=== PATIENT | female | born 1945 | race Hispanic/Latino ===

== ENCOUNTER 2017-02-22 10:48 | Outpatient (CLI) | payer MEDICARE, BC ==
--- NOTE | 2017-02-22 13:20 | SJPRAD ---
TWO VIEWS CHEST INDICATION: Cough, pneumonia. FINDINGS: There is a patchy left basilar opacity. Cardiac silhouette is upper limits of normal in size. No evidence of effusion or pneumothorax. No vascular congestion. There is osseous degenerative change . IMPRESSION: Subtle patchy left basilar opacity which may be on the basis of an area of pneumonia. Follow-up princess ging may be obtained to confirm resolution. POS: [facility]
== END 2017-02-22 10:49 | disposition home or self-care (01) ==
LOC: MWLC RAD 10:48
PROVIDERS: ATTEND Internal Medicine Geriatric Medicine
DX: R05 Cough (principal)

== ENCOUNTER 2017-05-22 13:50 | Outpatient (CLI) | payer MEDICARE, BC | END 2017-05-22 13:51 | disposition home or self-care (01) | LOC: BICMAMMO 13:50 | PROVIDERS: ATTEND Internal Medicine Hematology & Oncology | DX: Z13.820 Encounter for screening for osteoporosis (principal); M85.859 Other specified disorders of bone density and structure, unspecified thigh | CPT/HCPCS: 77080 ==

== ENCOUNTER 2018-07-01 15:33 | Outpatient (CLI) | payer MEDICARE, BC ==
[2018-07-01] MEDS ORDERED: ISOVUE-370 76%-LOCM 1 ML ONE (16:32)
--- NOTE | 2018-07-01 17:19 | CT ---
CT ABDOMEN AND PELVIS WITH CONTRAST: Technique: Multiple contiguous axial images were obtained through the abdomen and pelvis with IV enha ncement. Indications: Incisional hernia. Prior hernia surgery in 2006. Question new hernia. Comparison: 11/2014 FINDINGS: Lung bases are clear. Liver, spleen, and pancreas unremarkable. The gallbladder is mildly distended. Calcification is seen along the wall of the gallbladder which is a new finding when compared to an exam of 2015. This may represent tiny peripheral gallstones or pos sibly gallbladder wall calcification. No evidence of pericholecystic edema. Adrenal glands and kidneys unremarkable. There are small cystic lesions in both kidneys which are sta ble from prior exam. Bowel loops unremarkable. Stool throughout the colon. Diverticulosis of the sigmoid colon. Aorta normal caliber. Uterus unremarkable. There is a cyst in the left adnexa measuring 2.0 cm consis tent with an ovarian cyst on the left. Degenerative spine changes are prominent. Radiopaque fasteners along the prior anterior hernia repair. There appears to be a small defect in the anterior abdominal wall superior to the umbilicus in the mi dline. There appears to be mesenteric fat herniated through this defect with evidence of a small mona ia sac and subcutaneous tissues measuring approximately 4 cm. A questionable defect was present in 2015 and does not appear significantly changed. The small anteri or abdominal wall defect is best appreciated with sagittal images. IMPRESSION: 1. Small anterior abdominal wall hernia as described above. The small defect which measures approxima tely 8 mm on the sagittal view is best appreciated in the sagittal plane. 2. There is mild gallbladder distention and calcification along the wall of the gallbladder which is a new finding. 3. Evidence of a small left ovarian cyst which does appear stable when compared to the exam in 2015. POS: [facility]
== END 2018-07-01 15:34 | disposition home or self-care (01) ==
LOC: BICCT 15:33
PROVIDERS: ATTEND Surgery
DX: K43.2 Incisional hernia without obstruction or gangrene (principal); K43.9 Ventral hernia without obstruction or gangrene; K82.8 Other specified diseases of gallbladder; N83.202 Unspecified ovarian cyst, left side
CPT/HCPCS: 74177; Q9966

== ENCOUNTER 2018-07-24 01:06 | Outpatient (CLI) | payer MEDICARE, BC ==
[2018-07-24 10:57] LABS: #Eosinphils 0.2 thou/uL (0.0-0.7); #Lymphocytes 1.7 thou/uL (1.20-3.40); #Monocytes 0.4 thou/uL (0.11-0.59); #Neutrophils 3.3 thou/uL (1.40-6.50); %Basophils 0.7 % (0.0-1.0); %Eosinophils 2.7 % (0.0-10.0); %Lymphocytes 30.1 % (21.0-51.0); %Neutrophils 59.5 % (42.0-75.0); Hemoglobin 13.6 g/dL (12.0-16.0); Mean Corpuscular HGB CONC 33.1 g/dL (32.0-36.0); Mean Corpuscular Volume 84.7 fL (78.0-98.0); Platelet Count 192 thou/uL (130-400); Red Blood Cell (RBC) Count 4.85 mill/uL (4.20-5.40); White Blood Cell (WBC) Count 5.6 thou/uL (4.8-10.8)
[2018-07-24 11:19] LABS: Anion Gap 13 mmol/L (10-20); BUN (Urea Nitrogen) 16 mg/dL (9.8-20.1); Calc. Creatinine Clearance 0 mL/min (70-130); Calcium 9.9 mg/dL (7.8-10.44); Carbon Dioxide 27 mmol/L (23-31); Chloride 107 mmol/L (98-107); Estimated GFR-MDRD Greater than 90; Glucose 108 mg/dL (83-110); Potassium 4.7 mmol/L (3.5-5.1); Sodium 142 mmol/L (136-145)
== END 2018-07-24 01:07 | disposition home or self-care (01) ==
LOC: LABBT 01:06
PROVIDERS: ATTEND Surgery
DX: Z01.812 Encounter for preprocedural laboratory examination (principal); K43.2 Incisional hernia without obstruction or gangrene
CPT/HCPCS: 80048; 85025

== ENCOUNTER 2018-07-30 08:35 | Day surgery (SDC) | payer MEDICARE, BC ==
[2018-07-24 10:10] VITALS: BMI 39.4
[2018-07-30] MEDS ORDERED: Lidocaine 2% Jelly 5 ML TUBE ONE (09:45)
[2018-07-30] MEDS ORDERED: Fentanyl 100 MCG/2 ML VIAL ONE ×2 (09:45→11:52)
--- NOTE | 2018-07-30 12:26 | OP ---
DATE OF PROCEDURE: 07/30/2018 PREOPERATIVE DIAGNOSIS: Incisional hernia, recurrent. POSTOPERATIVE DIAGNOSIS: Incisional hernia, recurrent. PROCEDURE PERFORMED: Laparoscopic recurrent incisional hernia repair with mesh, Ventralex ST 8 cm. ANESTHESIA: General. ESTIMATED BLOOD LOSS: 50 mL. COMPLICATIONS: None. FINDINGS: Incisional hernia recurrent at the top of previous repair. DESCRIPTION OF PROCEDURE: The patient was taken to the operating room and laid supine on the operating room table. After general anesthetic was obtained. Inman was placed. The abdomen was shaved, prepped, and draped in a sterile fashion. Left subcostal 5 mm Optiview trocar was placed in the usual fashion without injury and high-flow pneumoperitoneum was obtained. Left and right abdominal subcostal 8 mm robotic trocars were placed without injury. An 8 cm peoria mesh with markings on the nonadherent side. 0 V-Loc and a 2-0 V-Loc were all placed into the abdomen. All ports were docked to the robot. Surgeon goes to the console. The transverse colon was held up and there was some omentum in the hernia defect. This was all taken down very carefully. There was a small serosal tear in the transverse colon during the portion of the procedure. A 2-0 Vicryl was brought into the abdomen and a needle stage driver and an oversew of the serosa in this area was performed. It did not appear to be a full-thickness injury. The 0 V-Loc was used to close the fascial defect. There were 2 small defects right next to each other. The Ventralex mesh was able to be held up against the posterior repair using the V-Loc needle. The nonadherent area was left against the abdominal contents, the exposed mesh I placed up against the posterior fascia. A 2-0 V-Loc was used to sew the mesh to the posterior fascia and previous mesh circumferentially. All needles were removed from the abdomen and accounted for. All port sites were infiltrated using local anesthetic. Thus, the 11 mm trocar site was closed using GraNee needle and 0 Vicryl tie. Pneumoperitoneum was let down. A 4-0 Monocryl and Dermabond used to close all skin incisions. The patient was sent to Recovery in stable condition. All sponge counts, needle counts, and lap counts were correct. Job ID: [id number]
== END 2018-07-30 13:25 | disposition home or self-care (01) ==
LOC: SDC 08:35
PROVIDERS: ATTEND Surgery
PROC: 0WUF4JZ Supplement Abdominal Wall with Synthetic Substitute, Percutaneous Endoscopic Approach (ICD-10-PCS; principal; 2018-07-30)
DX: K43.2 Incisional hernia without obstruction or gangrene (principal); G47.33 Obstructive sleep apnea (adult) (pediatric); Z87.891 Personal history of nicotine dependence; Z79.811 Long term (current) use of aromatase inhibitors; Z79.899 Other long term (current) drug therapy
CPT/HCPCS: C1781; J3010

== ENCOUNTER 2018-10-15 15:28 | Outpatient (CLI) | payer MEDICARE, BC ==
--- NOTE | 2018-10-15 16:20 | SJPRAD ---
CERVICAL SPINE THREE VIEWS: 10/15/18 HISTORY: Cervicalgia. FINDINGS: Degenerative changes are present at multiple levels in the cervical spine. No fracture or subluxatio n is identified. Cervical lordosis is maintained. IMPRESSION: Cervical spondylosis. POS: [facility]
== END 2018-10-15 15:29 | disposition home or self-care (01) ==
LOC: MWLC RAD 15:28
PROVIDERS: ATTEND Family Medicine
DX: M54.2 Cervicalgia (principal); M47.812 Spondylosis without myelopathy or radiculopathy, cervical region

== ENCOUNTER 2018-11-13 08:42 | Outpatient (CLI) | payer MEDICARE, BC ==
--- NOTE | 2018-11-13 09:16 | BD ---
EXAM: DEXA bone density examination HISTORY: 73-year-old postmenopausal female for screening COMPARISON: 11/23/2014 FINDINGS: L1--bone mineral density 0.925 g/sq cm; T score -0.6 L2--bone mineral density 1.027 g/sq cm; T score 0.0 L3--bone mineral density 0.860 g/sq cm; T score -2.0 L4--bone mineral density 0.938 g/sq cm; T score -1.1 Total L1-L4--bone mineral density 0.934 g/sq cm; T score -1.0 Left femoral neck--bone mineral density0.648; T score -1.8 Total proximal left femur--bone mineral density 0.942; T score 0.0 IMPRESSION: Osteopenia This patient has a 10 year WHO fracture risk of a major osteoporotic fracture of 16% and of a hip fracture of 2.6%.
== END 2018-11-13 08:43 | disposition home or self-care (01) ==
LOC: BICMAMMO 08:42
PROVIDERS: ATTEND Internal Medicine Hematology & Oncology
DX: M81.8 Other osteoporosis without current pathological fracture (principal); M85.89 Other specified disorders of bone density and structure, multiple sites; C50.919 Malignant neoplasm of unspecified site of unspecified female breast; Z85.3 Personal history of malignant neoplasm of breast
CPT/HCPCS: 77080

== ENCOUNTER 2019-11-27 10:20 | Outpatient (CLI) | payer MEDICARE, BC ==
--- NOTE | 2019-11-27 13:04 | BD ---
BONE DENSITOMETRY: INDICATION: Postmenopausal screening. FINDINGS: Lumbar Spine: BMD (g/cm2) L1 0.952 T-Score: -0.3 L2 0.965 T-Score: -0.6 L3 0.900 T-Score: -1.7 L4 1.034 T-Score: -0.2 L1-L4 0.966 T-Score: -0.7 Total density: 11/13/2018: 0.934. 11/23/2014: 0.831. 01/27/2013: 0.923. 02/12/2012: 0.909. Femoral Neck: 0.648 T-Score: -1.8 Total Femur: 0.918 T-Score: -0.2 Total density: 11/13/2018: 0.942. 11/23/2014: 0.881. 01/27/2013: 0.930. 02/12/2012: 0.928. Impression: 1. Bone mineral density of the lumbar spine within normal range. 2. Bone mineral density of the femoral neck indicates osteopenia. Ten-year fracture risk: Major osteoporotic fracture: 9.4%. Hip fracture: 1.6%. POS: [facility]
== END 2019-11-27 10:21 | disposition home or self-care (01) ==
LOC: BICMAMMO 10:20
PROVIDERS: ATTEND Internal Medicine Hematology & Oncology
DX: Z13.820 Encounter for screening for osteoporosis (principal); M85.859 Other specified disorders of bone density and structure, unspecified thigh; Z78.0 Asymptomatic menopausal state
CPT/HCPCS: 77080

== ENCOUNTER 2020-12-28 09:49 | Outpatient (CLI) | payer MEDICARE, OTHER | END 2020-12-28 09:50 | disposition home or self-care (01) | LOC: BICMAMMO 09:49 | PROVIDERS: ATTEND Internal Medicine Hematology & Oncology | DX: M85.89 Other specified disorders of bone density and structure, multiple sites (principal) | CPT/HCPCS: 77080 ==

== ENCOUNTER 2021-12-29 13:41 | Outpatient (CLI) | payer MEDICARE, OTHER | END 2021-12-29 13:42 | disposition home or self-care (01) | LOC: BICMAMMO 13:41 | PROVIDERS: ATTEND Internal Medicine Hematology & Oncology | DX: M85.851 Other specified disorders of bone density and structure, right thigh (principal); M85.852 Other specified disorders of bone density and structure, left thigh; M81.0 Age-related osteoporosis without current pathological fracture; Z85.3 Personal history of malignant neoplasm of breast | CPT/HCPCS: 77080 ==

== ENCOUNTER 2023-02-06 14:13 | Outpatient (CLI) | payer MEDICARE, BC | END 2023-02-06 14:14 | disposition home or self-care (01) | LOC: BICMAMMO 14:13 | PROVIDERS: ATTEND Internal Medicine Hematology & Oncology | DX: Z13.820 Encounter for screening for osteoporosis (principal); T36.8X5A Adverse effect of other systemic antibiotics, initial encounter; M85.89 Other specified disorders of bone density and structure, multiple sites; Z85.3 Personal history of malignant neoplasm of breast | CPT/HCPCS: 77080 ==

== ENCOUNTER 2024-02-08 08:59 | Outpatient (CLI) | payer MEDICARE, BC | END 2024-02-08 09:00 | disposition home or self-care (01) | LOC: BICMAMMO 08:59 | PROVIDERS: ATTEND Internal Medicine Hematology & Oncology | DX: M85.89 Other specified disorders of bone density and structure, multiple sites (principal); T38.6X5A Adverse effect of antigonadotrophins, antiestrogens, antiandrogens, not elsewhere classified, initial encounter; Z85.3 Personal history of malignant neoplasm of breast | CPT/HCPCS: 77080 ==